=== PATIENT | female | born 1955 | race African-American/Black ===

== ENCOUNTER 2021-04-30 08:22 | Outpatient (CLI) | payer SELFPAY | END 2021-04-30 08:23 | disposition home or self-care (01) | LOC: CSHWCC 08:22 | PROVIDERS: ATTEND Nurse Practitioner Family | DX: T81.89XA Other complications of procedures, not elsewhere classified, initial encounter (principal); I87.2 Venous insufficiency (chronic) (peripheral); E11.40 Type 2 diabetes mellitus with diabetic neuropathy, unspecified; E11.65 Type 2 diabetes mellitus with hyperglycemia; E11.621 Type 2 diabetes mellitus with foot ulcer; G90.09 Other idiopathic peripheral autonomic neuropathy; I10 Essential (primary) hypertension; Z89.422 Acquired absence of other left toe(s) | CPT/HCPCS: 97607; 99203; G0463 ==

== ENCOUNTER 2021-05-04 08:05 | Outpatient (CLI) | payer SELFPAY | END 2021-05-04 08:06 | disposition home or self-care (01) | LOC: CSHWCC 08:05 | PROVIDERS: ATTEND Nurse Practitioner Family | DX: T81.89XD Other complications of procedures, not elsewhere classified, subsequent encounter (principal); E11.40 Type 2 diabetes mellitus with diabetic neuropathy, unspecified; E11.621 Type 2 diabetes mellitus with foot ulcer; E11.65 Type 2 diabetes mellitus with hyperglycemia; L97.529 Non-pressure chronic ulcer of other part of left foot with unspecified severity; G90.09 Other idiopathic peripheral autonomic neuropathy; I10 Essential (primary) hypertension; I87.2 Venous insufficiency (chronic) (peripheral); Z89.422 Acquired absence of other left toe(s) | CPT/HCPCS: 97605 ==

== ENCOUNTER 2021-05-07 08:44 | Outpatient (CLI) | payer SELFPAY | END 2021-05-07 08:45 | disposition home or self-care (01) | LOC: CSHWCC 08:44 | PROVIDERS: ATTEND Nurse Practitioner Family | DX: T81.89XD Other complications of procedures, not elsewhere classified, subsequent encounter (principal); I87.2 Venous insufficiency (chronic) (peripheral); E11.621 Type 2 diabetes mellitus with foot ulcer; L97.509 Non-pressure chronic ulcer of other part of unspecified foot with unspecified severity; E11.40 Type 2 diabetes mellitus with diabetic neuropathy, unspecified; E11.65 Type 2 diabetes mellitus with hyperglycemia; E11.43 Type 2 diabetes mellitus with diabetic autonomic (poly)neuropathy; I10 Essential (primary) hypertension; Z89.422 Acquired absence of other left toe(s) | CPT/HCPCS: 97605 ==

== ENCOUNTER 2021-05-11 09:38 | Outpatient (CLI) | payer SELFPAY | END 2021-05-11 09:39 | disposition home or self-care (01) | LOC: CSHWCC 09:38 | PROVIDERS: ATTEND Nurse Practitioner Family | DX: T81.89XD Other complications of procedures, not elsewhere classified, subsequent encounter (principal); I87.2 Venous insufficiency (chronic) (peripheral); E11.621 Type 2 diabetes mellitus with foot ulcer; L97.509 Non-pressure chronic ulcer of other part of unspecified foot with unspecified severity; E11.40 Type 2 diabetes mellitus with diabetic neuropathy, unspecified; E11.65 Type 2 diabetes mellitus with hyperglycemia; E11.43 Type 2 diabetes mellitus with diabetic autonomic (poly)neuropathy; I10 Essential (primary) hypertension; Z89.422 Acquired absence of other left toe(s) | CPT/HCPCS: 99212; G0463 ==

== ENCOUNTER 2021-05-14 08:38 | Outpatient (CLI) | payer SELFPAY | END 2021-05-14 08:39 | disposition home or self-care (01) | LOC: CSHWCC 08:38 | PROVIDERS: ATTEND Nurse Practitioner Family | DX: T81.89XD Other complications of procedures, not elsewhere classified, subsequent encounter (principal); E11.621 Type 2 diabetes mellitus with foot ulcer; E11.40 Type 2 diabetes mellitus with diabetic neuropathy, unspecified; E11.65 Type 2 diabetes mellitus with hyperglycemia; G90.09 Other idiopathic peripheral autonomic neuropathy; I10 Essential (primary) hypertension; I87.2 Venous insufficiency (chronic) (peripheral); Z89.422 Acquired absence of other left toe(s) ==

== ENCOUNTER 2021-05-21 10:17 | Outpatient (CLI) | payer SELFPAY | END 2021-05-21 10:18 | disposition home or self-care (01) | LOC: CSHWCC 10:17 | PROVIDERS: ATTEND Nurse Practitioner Family | DX: T81.89XD Other complications of procedures, not elsewhere classified, subsequent encounter (principal); I87.2 Venous insufficiency (chronic) (peripheral); E11.621 Type 2 diabetes mellitus with foot ulcer; L97.509 Non-pressure chronic ulcer of other part of unspecified foot with unspecified severity; E11.40 Type 2 diabetes mellitus with diabetic neuropathy, unspecified; E11.43 Type 2 diabetes mellitus with diabetic autonomic (poly)neuropathy; E11.65 Type 2 diabetes mellitus with hyperglycemia; I10 Essential (primary) hypertension; Z89.422 Acquired absence of other left toe(s) | CPT/HCPCS: 99213; G0463 ==

== ENCOUNTER 2021-05-28 08:37 | Outpatient (CLI) | payer SELFPAY | END 2021-05-28 08:38 | disposition home or self-care (01) | LOC: CSHWCC 08:37 | PROVIDERS: ATTEND Nurse Practitioner Family | DX: T81.89XD Other complications of procedures, not elsewhere classified, subsequent encounter (principal); I87.2 Venous insufficiency (chronic) (peripheral); E11.621 Type 2 diabetes mellitus with foot ulcer; L97.509 Non-pressure chronic ulcer of other part of unspecified foot with unspecified severity; E11.40 Type 2 diabetes mellitus with diabetic neuropathy, unspecified; E11.65 Type 2 diabetes mellitus with hyperglycemia; E11.43 Type 2 diabetes mellitus with diabetic autonomic (poly)neuropathy; I10 Essential (primary) hypertension; Z89.422 Acquired absence of other left toe(s) | CPT/HCPCS: 36416; 99213; G0463 ==

== ENCOUNTER 2021-07-20 11:51 | Outpatient (CLI) | payer SELFPAY | END 2021-07-20 11:52 | disposition home or self-care (01) | LOC: CSHWCC 11:51 | PROVIDERS: ATTEND Nurse Practitioner Family | DX: T81.89XA Other complications of procedures, not elsewhere classified, initial encounter (principal); E11.40 Type 2 diabetes mellitus with diabetic neuropathy, unspecified; E11.65 Type 2 diabetes mellitus with hyperglycemia; E11.621 Type 2 diabetes mellitus with foot ulcer; G90.09 Other idiopathic peripheral autonomic neuropathy; I10 Essential (primary) hypertension; I87.2 Venous insufficiency (chronic) (peripheral); Z89.422 Acquired absence of other left toe(s) | CPT/HCPCS: 87070; 87077; 87205 ==

== ENCOUNTER 2021-07-28 15:01 | Outpatient (CLI) | payer BC ==
[2021-07-29 09:53] LABS: SARS-CoV-2 PCR by NAA Not Detected (NotDetected)
== END 2021-07-28 15:02 | disposition home or self-care (01) ==
LOC: CSHLAB 15:01
PROVIDERS: ATTEND Podiatrist Foot & Ankle Surgery
DX: Z20.822 Contact with and (suspected) exposure to COVID-19 (principal)
CPT/HCPCS: U0003; U0005

== ENCOUNTER 2021-07-31 13:03 | Day surgery (SDC) | payer BC ==
[2021-07-29 10:59] VITALS: BMI 26.2
[2021-07-31] MEDS ORDERED: ceFAZolin 2 GM/Dextrose 50 ML IVPB ONE (13:47)
[2021-07-31] MEDS ORDERED: Bupivacaine PF 0.5% 30 ML VIAL ONE (14:00)
[2021-07-31] MEDS ORDERED: Ondansetron PF 4 MG/2 ML Vial ONE (14:07)
[2021-07-31] MEDS ORDERED: Dexamethasone 4 mg/ml Vial ONE (14:07)
[2021-07-31] MEDS ORDERED: Lidocaine 1% PF 5 ML VIAL ONE (14:07)
[2021-07-31] MEDS ORDERED: Fentanyl 100 MCG/2 ML VIAL ONE ×2 (14:18→15:02)
[2021-07-31] MEDS ORDERED: Neomycin-Polymyxin 1 ML AMP ONE (14:41)
[2021-07-31] MEDS ORDERED: HYDROcodone/Acetaminophen 5/325 mg Tablet ONE (15:48)
== END 2021-07-31 16:35 | disposition home or self-care (01) ==
LOC: CSHSDC 13:03
PROVIDERS: ATTEND Podiatrist Foot & Ankle Surgery
PROC: 0Y6N0Z9 Detachment at Left Foot, Partial 1st Ray, Open Approach (ICD-10-PCS; principal; 2021-07-31)
PROC: 0Y6N0ZF Detachment at Left Foot, Partial 5th Ray, Open Approach (ICD-10-PCS; principal; 2021-07-31)
PROC: 0Y6N0ZD Detachment at Left Foot, Partial 4th Ray, Open Approach (ICD-10-PCS; principal; 2021-07-31)
PROC: 0Y6N0ZC Detachment at Left Foot, Partial 3rd Ray, Open Approach (ICD-10-PCS; principal; 2021-07-31)
PROC: 0Y6N0ZB Detachment at Left Foot, Partial 2nd Ray, Open Approach (ICD-10-PCS; principal; 2021-07-31)
DX: E11.52 Type 2 diabetes mellitus with diabetic peripheral angiopathy with gangrene (principal); I10 Essential (primary) hypertension; Z79.82 Long term (current) use of aspirin; Z79.899 Other long term (current) drug therapy; Z79.4 Long term (current) use of insulin
CPT/HCPCS: 36416; 88307; 88311; C1713; J0690; J1100; J2405; J3010; S0020